=== PATIENT | female | born 1960 | race African-American/Black ===

== ENCOUNTER 2018-05-01 16:00 | Outpatient (CLI) | payer BC ==
[2018-05-01 17:00] LABS: #Eosinphils 0.1 thou/uL (0.0-0.7); #Lymphocytes 0.9 thou/uL (1.20-3.40); #Monocytes 0.6 thou/uL (0.11-0.59); #Neutrophils 2.4 thou/uL (1.40-6.50); %Basophils 0.9 % (0.0-1.0); %Eosinophils 2.2 % (0.0-10.0); %Lymphocytes 23.2 % (21.0-51.0); %Monocytes 14.5 % (0.0-10.0); %Neutrophils 59.1 % (42.0-75.0); Hemoglobin 13.2 g/dL (12.0-16.0); Mean Corpuscular HGB CONC 35.3 g/dL (32.0-36.0); Mean Corpuscular Hemoglobin 32.8 pg (27.0-31.0); Mean Corpuscular Volume 92.9 fL (78.0-98.0); Mean Platelet Volume 8.4 fL (7.4-10.4); Platelet Count 283 thou/uL (130-400); RBC Distribution Width 11.8 % (11.5-14.5); Red Blood Cell (RBC) Count 4.01 mill/uL (4.20-5.40)
[2018-05-01 17:19] LABS: Anion Gap 11 mmol/L (10-20); BUN (Urea Nitrogen) 22 mg/dL (9.8-20.1); Calc. Creatinine Clearance 0 mL/min (70-130); Calcium 9.5 mg/dL (7.8-10.44); Carbon Dioxide 24 mmol/L (22-29); Chloride 106 mmol/L (98-107); Estimated GFR-MDRD 59; Glucose 97 mg/dL (70-105); Potassium 4.2 mmol/L (3.5-5.1); Sodium 137 mmol/L (136-145)
== END 2018-05-01 16:01 | disposition home or self-care (01) ==
LOC: LABBT 16:00
PROVIDERS: ATTEND Surgery
DX: Z01.812 Encounter for preprocedural laboratory examination (principal); D17.21 Benign lipomatous neoplasm of skin and subcutaneous tissue of right arm
CPT/HCPCS: 80048; 85025; 93005; 93010

== ENCOUNTER 2018-05-03 08:51 | Outpatient (CLI) | payer BC | END 2018-05-03 08:52 | disposition home or self-care (01) | LOC: BICMAMMO 08:51 | PROVIDERS: ATTEND Family Medicine | DX: Z12.31 Encounter for screening mammogram for malignant neoplasm of breast (principal); R92.1 Mammographic calcification found on diagnostic imaging of breast | CPT/HCPCS: 77063; 77067 ==

== ENCOUNTER 2018-05-05 09:23 | Day surgery (SDC) | payer BC ==
[2018-05-01 16:24] VITALS: BMI 27.6
[2018-05-05] MEDS ORDERED: CEFAZOLIN/Water 2 GM/20 ML SYRINGE ONE (09:44)
[2018-05-05] MEDS ORDERED: Midazolam HCl 2 mg/2 ml Vial ONE (10:47)
[2018-05-05] MEDS ORDERED: Bacitracin Zinc Ointment 30 gm TUBE ONE (10:51)
[2018-05-05] MEDS ORDERED: Bupivacaine/Epinephrine 0.25% 30 ML VIAL ONE (10:51)
[2018-05-05] MEDS ORDERED: Lidocaine 2% 10 ML INJ ONE (10:51)
[2018-05-05] MEDS ORDERED: Fentanyl 100 MCG/2 ML VIAL ONE ×2 (10:54→12:26)
[2018-05-05] MEDS ORDERED: Dexamethasone 20 MG/5 ML VIAL ONE (15:14)
[2018-05-05] MEDS ORDERED: Ondansetron HCl/PF 4 MG/2 ML Vial ONE (15:14)
[2018-05-05] MEDS ORDERED: PROPOFOL 200 MG/20 ML VIAL ONE (15:14)
[2018-05-05] MEDS ORDERED: Glycopyrrolate 0.2 MG/ML 5 ML SYRINGE ONE (15:14)
[2018-05-05] MEDS ORDERED: Ketorolac Tromethamine 30 MG/ML VIAL ONE (15:14)
[2018-05-05] MEDS ORDERED: ePHEDrine/0.9% NaCl/PF SYRINGE 50 mg/10 ml ONE (15:14)
[2018-05-05] MEDS ORDERED: PHENYLEPHRINE-NS 100 MCG/ML 10 ML SYRINGE ONE (15:14)
[2018-05-05] MEDS ORDERED: Lidocaine 1% PF 5 ML VIAL ONE (15:14)
--- NOTE | 2018-05-05 19:26 | PDOC.OP ---
Operative Note - Operative Note Operative Note: PROCEDURE: Excision of right shoulder lipoma DATE OF PROCEDURE: 05/05/2018 SURGEON: Dmitry Drake M.D. PREOPERATIVE DIAGNOSES: Right shoulder lipoma POSTOPERATIVE DIAGNOSIS: Right shoulder lipoma HISTORY: Patient with a subcutaneous mass of her right shoulder which is symptomatic and for which she desires excision. PROCEDURE IN DETAIL: After informed consent was obtained and appropriate preoperative antibiotics administered the patient was taken to the operating room where she was placed in supine position and general anesthesia was administered. She was then placed in the left lateral decubitus position with appropriate support and padding of her extremities and was prepped and draped in the standard sterile fashion. Local anesthesia was infused the skin subcutaneous tissues overlying the palpable mass and a transverse incision was made. Dissection was carried down to the mass which was immediately adjacent to the skin and extended to the fascia. This was a lobulated encapsulated lipoma measuring 7 x 9 cm. This was dissected free of the surrounding tissues and sent for permanent pathology. The wound was irrigated and hemostasis obtained using Bovie electrocautery. The subcutaneous tissues were reapproximated in layers with 3-0 Monocryl suture and the skin was closed with 4-0 Monocryl suture. Dermabond dressings were placed and the patient was extubated and taken to recovery in good condition. Estimated blood loss was minimal. Complications. Specimen is lipoma from right shoulder.
== END 2018-05-05 15:10 | disposition home or self-care (01) ==
LOC: SDC 09:23
PROVIDERS: ATTEND Surgery
PROC: 0JBD0ZZ Excision of Right Upper Arm Subcutaneous Tissue and Fascia, Open Approach (ICD-10-PCS; principal; 2018-05-05)
DX: D17.21 Benign lipomatous neoplasm of skin and subcutaneous tissue of right arm (principal); E78.5 Hyperlipidemia, unspecified; F17.210 Nicotine dependence, cigarettes, uncomplicated; Z79.899 Other long term (current) drug therapy
CPT/HCPCS: 88304; 96374; J0131; J1100; J1885; J2001; J2250; J2405; J2704; J3010

== ENCOUNTER 2019-05-10 07:37 | Outpatient (CLI) | payer BC ==
--- NOTE | 2019-05-10 08:29 | MMO ---
Bilateral MAMMO Bilat Screen [facility]. CLINICAL HISTORY: Patient is 59 years old and is seen for screening. The patient has no family history of breast cancer. The patient has no personal history of cancer. VIEWS: The views performed were: bilateral craniocaudal with tomosynthesis; bilateral mediolateral oblique with tomosynthesis; and bilateral exaggerated craniocaudal. FILMS COMPARED: The present examination has been compared to prior imaging studies performed at [facility] on 03/29/2014, 04/05/2017 and 05/03/2018. MAMMOGRAM FINDINGS: There are scattered fibroglandular densities. There are no suspicious masses, suspicious calcifications, or new areas of architectural distortion. IMPRESSION: THERE IS NO MAMMOGRAPHIC EVIDENCE OF MALIGNANCY. A ROUTINE FOLLOW-UP MAMMOGRAM IN 1 YEAR IS RECOMMENDED. THE RESULTS OF THIS EXAM WERE SENT TO THE PATIENT. ACR BI-RADS Category 1 - Negative MAMMOGRAPHY NOTE: 1. A negative mammogram report should not delay a biopsy if a dominant of clinically suspicious mass is present. 2. Approximately 10% to 15% of breast cancers are not detected by mammography. 3. Adenosis and dense breasts may obscure an underlying neoplasm. Reported by: MICHELLE LIANG MD Electonically Signed: [id number]
== END 2019-05-10 07:38 | disposition home or self-care (01) ==
LOC: BICMAMMO 07:37
PROVIDERS: ATTEND Family Medicine
DX: Z12.31 Encounter for screening mammogram for malignant neoplasm of breast (principal)
CPT/HCPCS: 77063; 77067

== ENCOUNTER 2019-12-26 11:16 | Outpatient (CLI) | payer BC ==
--- NOTE | 2019-12-26 11:57 | RAD ---
2 view chest: [12/26/2019] Comparison:12/22/2019 HISTORY: Pleural effusion, cough, difficulty breathing FINDINGS: No pneumothorax. Pulmonary vascular congestion present. There is interstitial density in bi lateral perihilar regions and both lung bases, similar when compared to the 12/22/2019 exam. There is blunting of the costophrenic angle on the right associated with a small/moderate right sided pleural effusion, grossly unchanged. IMPRESSION: Stable 2 view examination of the chest. Findings suggest pulmonary edema. Interstitial in fection or malignancy in the proper clinical setting cannot be excluded. Follow-up imaging to document resolution thus advised.
[2019-12-26 14:29] LABS: #Lymphocytes 0.5 thou/uL (1.20-3.40); #Monocytes 0.3 thou/uL (0.11-0.59); #Neutrophils 6.5 thou/uL (1.40-6.50); %Basophils 0.4 % (0.0-1.0); %Eosinophils 0.2 % (0.0-10.0); %Lymphocytes 6.7 % (21.0-51.0); %Monocytes 3.7 % (0.0-10.0); %Neutrophils 89.1 % (42.0-75.0); Hemoglobin 12.7 g/dL (12.0-16.0); Mean Corpuscular HGB CONC 33.3 g/dL (32.0-36.0); Mean Corpuscular Hemoglobin 30.8 pg (27.0-31.0); Mean Corpuscular Volume 92.4 fL (78.0-98.0); Mean Platelet Volume 8.4 fL (7.4-10.4); Platelet Count 419 thou/uL (130-400); RBC Distribution Width 12.8 % (11.5-14.5); Red Blood Cell (RBC) Count 4.12 mill/uL (4.20-5.40); White Blood Cell (WBC) Count 7.3 thou/uL (4.8-10.8)
[2019-12-26 15:31] LABS: ALT (SGPT) 15 U/L (8-55); AST (SGOT) 12 U/L (5-34); Albumin 4.5 g/dL (3.5-5.0); Alkaline Phosphatase 61 U/L (40-110); Anion Gap 13 mmol/L (10-20); BUN (Urea Nitrogen) 17 mg/dL (9.8-20.1); Bilirubin, Total 0.5 mg/dL (0.2-1.2); Calc. Creatinine Clearance 0 mL/min (70-130); Calcium 9.6 mg/dL (7.8-10.44); Carbon Dioxide 26 mmol/L (22-29); Chloride 103 mmol/L (98-107); Estimated GFR-MDRD 72; Globulin 3.2 g/dL (2.4-3.5); Glucose 101 mg/dL (70-105); Potassium 3.5 mmol/L (3.5-5.1); Protein, Total 7.7 g/dL (6.0-8.3); Sodium 138 mmol/L (136-145)
== END 2019-12-26 11:17 | disposition home or self-care (01) ==
LOC: SCSRAD 11:16
PROVIDERS: ATTEND Family Medicine
DX: J90 Pleural effusion, not elsewhere classified (principal)
CPT/HCPCS: 36415; 71046; 80053; 83880; 85025

== ENCOUNTER 2020-01-10 12:20 | Outpatient (CLI) | payer BC | END 2020-01-10 12:21 | disposition home or self-care (01) | LOC: ULT 12:20 | PROVIDERS: ATTEND Family Medicine | DX: I08.1 Rheumatic disorders of both mitral and tricuspid valves (principal) | CPT/HCPCS: 93306 ==

== ENCOUNTER 2020-02-25 16:13 | Outpatient (CLI) | payer BC ==
--- NOTE | 2020-02-25 17:25 | RAD ---
TWO VIEW CHEST: History: Mitral stenosis. Comparison: 12-26-2019 FINDINGS: Heart size upper normal. Mild vascular engorgement. Vascular congestion has improved when compared to 12-26-2019. There is evidence of a small residual right pleural effusion. This right sided effusion h as decreased significantly when compared to 12-26-2019. Degenerative spine changes again noted. IMPRESSION: Improvement in the chest when compared to 12-26-2019 as stated above. POS: [facility]
== END 2020-02-25 16:14 | disposition home or self-care (01) ==
LOC: RAD 16:13
PROVIDERS: ATTEND Internal Medicine Cardiovascular Disease
DX: I05.2 Rheumatic mitral stenosis with insufficiency (principal)
CPT/HCPCS: 71046

== ENCOUNTER 2020-03-05 06:25 | Outpatient (CLI) | payer BC, OTHER ==
[2020-03-05 09:56] LABS: #Eosinphils 0.1 thou/uL (0.0-0.7); #Lymphocytes 0.7 thou/uL (1.20-3.40); #Monocytes 0.6 thou/uL (0.11-0.59); #Neutrophils 3.3 thou/uL (1.40-6.50); %Basophils 0.3 % (0.0-1.0); %Eosinophils 1.2 % (0.0-10.0); %Lymphocytes 14.7 % (21.0-51.0); %Monocytes 12.9 % (0.0-10.0); %Neutrophils 70.9 % (42.0-75.0); Hemoglobin 12.5 g/dL (12.0-16.0); Mean Corpuscular HGB CONC 33.2 g/dL (32.0-36.0); Mean Corpuscular Volume 93.5 fL (78.0-98.0); Mean Platelet Volume 8.5 fL (7.4-10.4); Platelet Count 344 thou/uL (130-400); RBC Distribution Width 12.8 % (11.5-14.5); Red Blood Cell (RBC) Count 4.04 mill/uL (4.20-5.40); White Blood Cell (WBC) Count 4.7 thou/uL (4.8-10.8)
[2020-03-05 10:07] LABS: ALT (SGPT) 13 U/L (8-55); AST (SGOT) 13 U/L (5-34); Albumin 4.4 g/dL (3.5-5.0); Alkaline Phosphatase 50 U/L (40-110); Anion Gap 14 mmol/L (10-20); BUN (Urea Nitrogen) 18 mg/dL (9.8-20.1); Bilirubin, Total 0.6 mg/dL (0.2-1.2); Calc. Creatinine Clearance 0 mL/min (70-130); Calcium 8.8 mg/dL (7.8-10.44); Carbon Dioxide 25 mmol/L (22-29); Chloride 102 mmol/L (98-107); Estimated GFR-MDRD 74; Globulin 3.6 g/dL (2.4-3.5); Glucose 79 mg/dL (70-105); Potassium 4.2 mmol/L (3.5-5.1); Sodium 137 mmol/L (136-145)
[2020-03-05 18:56] LABS: SARS-CoV-2 MS2 Positive; SARS-CoV-2 N Gene Negative; SARS-CoV-2 S Gene Negative; SARS-CoV-2 orf1ab Negative
== END 2020-03-05 06:26 | disposition home or self-care (01) ==
LOC: LABBT 06:25
PROVIDERS: ATTEND Internal Medicine Cardiovascular Disease
DX: Z01.812 Encounter for preprocedural laboratory examination (principal); Z11.59 Encounter for screening for other viral diseases; I05.0 Rheumatic mitral stenosis
CPT/HCPCS: 80053; 85025; 87635; U0003

== ENCOUNTER 2020-03-07 05:45 | Day surgery (SDC) | payer BC ==
[2020-03-05 08:57] VITALS: BMI 27.1
[2020-03-07] MEDS ORDERED: Midazolam HCl 2 mg/2 ml Vial ONE ×2 (07:01→08:46)
[2020-03-07 07:27] LABS: Cardiac Risk 2.2 (Less than 4.5)
[2020-03-07] MEDS ORDERED: Heparin 10,000 UNITS/1 ML VIAL ONE (07:57)
[2020-03-07] MEDS ORDERED: Fentanyl 100 MCG/2 ML VIAL ONE (08:46)
[2020-03-07] MEDS ORDERED: Protamine Sulfate 50 MG/5 ML VIAL ONE (09:17)
[2020-03-07] MEDS ORDERED: Iopamidol 370 76% 50 ML VIAL FS ONE (09:25)
[2020-03-07] MEDS ORDERED: Iopamidol 370 76% 100 ML VIAL ONE (09:25)
== END 2020-03-07 16:01 | disposition home or self-care (01) ==
LOC: CCL 05:45
PROVIDERS: ATTEND Internal Medicine Cardiovascular Disease
PROC: B2111ZZ Fluoroscopy of Multiple Coronary Arteries using Low Osmolar Contrast (ICD-10-PCS; principal; 2020-03-07)
PROC: 4A023N8 Measurement of Cardiac Sampling and Pressure, Bilateral, Percutaneous Approach (ICD-10-PCS; principal; 2020-03-07)
DX: I05.2 Rheumatic mitral stenosis with insufficiency (principal); I44.2 Atrioventricular block, complete; I10 Essential (primary) hypertension; E78.5 Hyperlipidemia, unspecified; Z87.891 Personal history of nicotine dependence; Z82.49 Family history of ischemic heart disease and other diseases of the circulatory system; Z79.818 Long term (current) use of other agents affecting estrogen receptors and estrogen levels; Z79.82 Long term (current) use of aspirin; Z79.899 Other long term (current) drug therapy
CPT/HCPCS: 80061; 85347; 93460; 99152; 99153; C1769; J1644; J2250; J2720; J3010; Q9967

== ENCOUNTER 2020-05-14 08:43 | Outpatient (CLI) | payer BC ==
--- NOTE | 2020-05-14 09:37 | MMO ---
Bilateral MAMMO Bilat Screen [facility]. CLINICAL HISTORY: Patient is 60 years old and is seen for screening. The patient has no family history of breast cancer. The patient has no personal history of cancer. VIEWS: The views performed were: bilateral craniocaudal with tomosynthesis and bilateral mediolateral oblique with tomosynthesis. FILMS COMPARED: The present examination has been compared to prior imaging studies performed at [facility] on 03/29/2014, 04/05/2017, 05/03/2018 and 05/10/2019. This study has been interpreted with the assistance of computer-aided detection. MAMMOGRAM FINDINGS: There are scattered fibroglandular densities. There are no suspicious masses, suspicious calcifications, or new areas of architectural distortion. IMPRESSION: THERE IS NO MAMMOGRAPHIC EVIDENCE OF MALIGNANCY. A ROUTINE FOLLOW-UP MAMMOGRAM IN 1 YEAR IS RECOMMENDED. THE RESULTS OF THIS EXAM WERE SENT TO THE PATIENT. ACR BI-RADS Category 1 - Negative MAMMOGRAPHY NOTE: 1. A negative mammogram report should not delay a biopsy if a dominant of clinically suspicious mass is present. 2. Approximately 10% to 15% of breast cancers are not detected by mammography. 3. Adenosis and dense breasts may obscure an underlying neoplasm. Reported by: MEREIDTH ABARHAM MD Electonically Signed: [id number]
== END 2020-05-14 08:44 | disposition home or self-care (01) ==
LOC: BICMAMMO 08:43
PROVIDERS: ATTEND Family Medicine
DX: Z12.31 Encounter for screening mammogram for malignant neoplasm of breast (principal)
CPT/HCPCS: 77063; 77067

== ENCOUNTER 2021-06-05 14:17 | Outpatient (CLI) | payer BC | END 2021-06-05 14:18 | disposition home or self-care (01) | LOC: BICMAMMO 14:17 | PROVIDERS: ATTEND Family Medicine | DX: Z12.31 Encounter for screening mammogram for malignant neoplasm of breast (principal) | CPT/HCPCS: 77063; 77067 ==

== ENCOUNTER 2022-06-07 14:21 | Outpatient (CLI) | payer BC | END 2022-06-07 14:22 | disposition home or self-care (01) | LOC: BICMAMMO 14:21 | PROVIDERS: ATTEND Family Medicine | DX: Z12.31 Encounter for screening mammogram for malignant neoplasm of breast (principal) | CPT/HCPCS: 77063; 77067 ==

== ENCOUNTER 2023-06-23 14:40 | Outpatient (CLI) | payer BC | END 2023-06-23 14:41 | disposition home or self-care (01) | LOC: BICMAMMO 14:40 | PROVIDERS: ATTEND Family Medicine | DX: Z12.31 Encounter for screening mammogram for malignant neoplasm of breast (principal) | CPT/HCPCS: 77063; 77067 ==

== ENCOUNTER 2024-07-13 08:58 | Outpatient (CLI) | payer BC | END 2024-07-13 08:59 | disposition home or self-care (01) | LOC: BICMAMMO 08:58 | PROVIDERS: ATTEND Family Medicine | DX: Z12.31 Encounter for screening mammogram for malignant neoplasm of breast (principal) | CPT/HCPCS: 77067 ==

== ENCOUNTER 2025-07-18 07:54 | Outpatient (CLI) | payer BC | END 2025-07-18 07:55 | disposition home or self-care (01) | LOC: BICMAMMO 07:54 | PROVIDERS: ATTEND Family Medicine | DX: Z12.31 Encounter for screening mammogram for malignant neoplasm of breast (principal) | CPT/HCPCS: 77063; 77067 ==